=== PATIENT | female | born 1950 | race Caucasian/White ===

== ENCOUNTER 2019-07-11 14:51 | Inpatient (IN) ==
[2019-07-11] MEDS ORDERED: CARDIZEM IV ONE (15:11)
[2019-07-11] MEDS ORDERED: NS 500 ML IV ONE (15:12)
[2019-07-11] MEDS ORDERED: CARDIZEM ONE (15:14)
[2019-07-11] MEDS ORDERED: CARDIZEM 125/NS 125 MG/125 ML IVPB IV SCH (15:15)
--- NOTE | 2019-07-11 15:24 | EKG Report ---
Test Performed on : 07/11/2019 3:15:14 PM Test Reason : palpitations Blood Pressure : / mmHG Vent. Rate : 117 BPM Atrial Rate : 093 BPM P-R Int : 000 ms QRS Dur : 138 ms QT Int : 376 ms P-R-T Axes : 000 -51 101 degrees QTc Int : 524 ms Atrial fibrillation. with rapid ventricular response. Left axis deviation Left bundle branch block Abnormal ECG When compared with ECG of 11-JUL-2019 15:10, (Unconfirmed) No significant change was found Unconfirmed Result
--- NOTE | 2019-07-11 15:35 | Diag Imaging Result Doc PS360 ---
EXAM: CHEST-1 VIEW HISTORY: palpitations TECHNIQUE: Chest single view COMPARISON: None. FINDINGS: The lungs are well expanded. The heart is not enlarged. The vessels are not distended. There are no infiltrates. No effusion identified. IMPRESSION: Negative exam. Electronically signed by Ham Petersen 07/11/2019 3:32 PM
[2019-07-11 15:52] LABS: URINE SOURCE CLEAN CATCH
[2019-07-11 15:59] LABS: BASO# 0.03 X1000 (0.0-0.2); BASO% 0.4 % (0.0-0.8); EOS# 0.13 X1000 (0.0-0.7); EOS% 1.6 % (0.0-10.0); HEMATOCRIT 39.4 % (37.0-47.0); HEMOGLOBIN 13.2 g/dL (12.0-16.0); LYMPH# 2.82 X1000 (1.2-3.4); LYMPH% 33.9 % (20.5-51.1); MCH 28.3 PG (27-31); MCHC 33.5 g/dL (33-37); MCV 84.4 FL (81-99); MONO# 0.62 X1000 (0.11-0.59); MONO% 7.4 % (1.7-9.3); MPV 11.6 FL (7.4-10.4); NEUT# 4.73 X1000 (1.4-6.5); NEUT% 56.7 % (42.2-75.2); PLT 284 X1000 (130-400); RBC 4.67 XMIL (4.2-5.4); RDW 13.2 % (11.5-14.5); WBC 8.33 X1000 (4.8-10.8)
[2019-07-11 16:00] LABS: BILIRUBIN URINE NEGATIVE (NEGATIVE); BLOOD URINE TRACE (NEGATIVE); COLOR STRAW; GLUCOSE URINE NEGATIVE (NEGATIVE); KETONE URINE NEGATIVE (NEGATIVE); LEUKOCYTES URINE NEGATIVE (NEGATIVE); NITRITE URINE NEGATIVE (NEGATIVE); PROTEIN URINE NEGATIVE (NEGATIVE); SP GRAVITY URINE 1.003; TURBIDITY URINE CLEAR (CLEAR); UROBILINOGEN URINE NORMAL (NORMAL)
[2019-07-11] MEDS ORDERED: CARDIZEM 125/NS 125 MG/125 ML IVPB IV ONE (16:00)
[2019-07-11 16:01] LABS: UR EPITHELIAL CELLS <10 /HPF (<10); URINE BACTERIA NEGATIVE /HPF; URINE RBC <10 /HPF (<10); URINE WBC <10 /HPF (<10)
[2019-07-11 16:09] LABS: INR 0.96; PROTIME 12.8 Seconds (11.0-16.0)
[2019-07-11 16:10] LABS: PTT 29.5 Seconds (22.3-41.8)
[2019-07-11 16:48] LABS: AGAP 15; ALB/GLOB RATIO 1.5; ALBUMIN 4.6 g/dL (3.5-5.0); ALKALINE PHOSPHATASE 135 U/L (32-104); BUN 16 mg/dL (8-22); CHLORIDE 105 mmol/L (98-107); COSMO 291; CREATININE 0.9 mg/dL (0.5-0.9); ESTIMATED GFR > 60; GLUCOSE 112 mg/dL (70-104); GOT 21 U/L (10-30); GPT 21 U/L (10-36); POTASSIUM 3.2 mmol/L (3.5-5.1); SODIUM 145 mmol/L (136-145); TCO2 25 mmol/L (25-35); TOTAL BILIRUBIN 0.29 mg/dL (0.20-1.00); TOTAL PROTEIN 7.7 g/dL (6.3-8.3)
[2019-07-11] MEDS ORDERED: KLOR-CON PO ONE (17:01)
--- NOTE | 2019-07-11 17:01 | PROVIDER DOCUMENTATION ---
This chart was entered by Gwen Powell Scribe, acting as scribe for Yefri Ocampo MD. HPI-Cardiac General - General Chief Complaint: Palpitations Stated Complaint: HEART PROBLEM Time Seen by Provider: 07/11/19 14:58 Source: patient Allergies/Adverse Reactions: Patient Allergies Allergy/AdvReac Type Severity Reaction Status Date / Time No Known Allergies Allergy Verified 07/11/19 15:16 Home Medications: Home Medication List Medication Instructions Recorded Confirmed Last Taken Type Atorvastatin Calcium 40 mg PO DAILY 07/11/19 07/11/19 07/10/19 17:00 History Bupropion HCl [Wellbutrin Xl] 150 mg PO DAILY 07/11/19 07/11/19 07/11/19 06:00 History Calcium Carb, Citrate/Vit D3 1 ea PO DAILY 07/11/19 07/11/19 07/11/19 06:00 History [Calcium + D3 ER Tablet] Carvedilol [Coreg] 6.25 mg PO BID 07/11/19 07/11/19 07/10/19 20:00 History Furosemide [Lasix] 40 mg PO BID 07/11/19 07/11/19 07/11/19 06:00 History Levothyroxine [Synthroid] 75 microgm PO DAILY 07/11/19 07/11/19 07/10/19 06:00 History Multivitamin [Multi-Day Vitamins] 1 tab PO DAILY 07/11/19 07/11/19 07/11/19 06:00 History Omeprazole 20 mg PO BID 07/11/19 07/11/19 07/10/19 20:00 History Sacubitril/Valsartan [Entresto 24 1 tab PO DAILY 07/11/19 07/11/19 07/11/19 06:00 History mg-26 mg Tablet] Spironolactone [Aldactone] 25 mg PO DAILY 07/11/19 07/11/19 07/11/19 06:00 History Vit D3-Vit K/Berberine/Hops 1 ea PO DAILY 07/11/19 07/11/19 07/11/19 06:00 History [Ostera Tablet] - History of Present Illness-Cardiac Nature of Presenting Problem: 68 yowf presents to the ed with c/o palpitations. pt sts she feels good and has no sob or chest pain. pt sts has spent the day with family and staying busy but has had no issues other then brief moments of feeling like her heart may be a bit fast. pt on exam is non toxic in appearance. pt sts no hx of AFIB and PMH is HTN and CHF Quality of Pain: reports: none Severity in ED: moderate Onset/Duration: unsure Timing: still present Context/Activities at Onset: reports: light activity Modifying Factors: improves with: nothing Palpitation Quality: fast/pounding heart beat History of arrythmia: reports: none Recent use of:: reports: caffeine Nitro Today/Relief: reports: no nitro taken today Aspirin Treatment Today: reports: no aspirin today Prior Chest Pain/Cardiac Workup: reports: no prior chest pain Associated Symptoms: reports: denies symptoms Similar Symptoms Previously?: No Recently Seen Here or By Another Healthcare Provider: No Review of Systems - Adult - REVIEW OF SYSTEMS - ADULT Constitutional: denies: chills, fever Eyes: reports: no symptoms reported Ears, Nose, Mouth & Throat: reports: no symptoms reported Cardiovascular: reports: see HPI, palpitations. denies: chest pain, orthopnea, syncope Respiratory: denies: cough, shortness of breath, wheezing Gastrointestinal: denies: abdominal pain, diarrhea, nausea, vomiting Genitourinary: reports: no symptoms reported Musculoskeletal: denies: back pain, neck pain Integumentary: reports: no symptoms reported Neurological: denies: dizziness/vertigo, headache/migraines Psychiatric: reports: no symptoms reported Endocrine: reports: no symptoms reported Hematologic/Lymphatic: reports: no symptoms reported Allergic/Immunologic: reports: no symptoms reported All Other Systems: Reviewed and Negative Past History - Adult - PAST MEDICAL HISTORY-ADULT Review of Records: reports: Old Records Reviewed, Nursing Assessment Review, Medications Reviewed, Social history reviewed & non-contributory. Major Childhood Illnesses: reports: denies history Cardiovascular: reports: CHF, HTN Respiratory: reports: denies history Gastrointestinal: reports: denies history Obstetrical/Gynecological: reports: denies history Genitourinary: reports: denies history Musculoskeletal: reports: denies history Neurological: reports: denies history Psychiatric: reports: denies history Endocrine/Immune: reports: denies history Other Conditions: reports: denies history - PRIOR SURGERIES/PROCEDURES Surgical/Procedure History: reports: reviewed, not pertinent - IMMUNIZATION STATUS Childhood Immunizations: See Nurse Assessment Flu Vaccine: See Nurse Assessment - FAMILY HISTORY Family History: reviewed, not pertinent - SOCIAL HISTORY Smoking: denies Substance Use: denies Living Situation: family Physical Exam-General - PHYSICAL EXAM-ADULT Initial Vital Signs Reviewed: Yes - CONSTITUTIONAL General Appearance: appears well, alert, no apparent distress (pt sts she feels good and denies any sx), obese. negative: anxious - EYES Eyes: PERRL/EOMI, pink conjunctivae - HEAD, EARS, NOSE, MOUTH & THROAT HENMT: moist mucous membranes - NECK Neck: non-tender, full range of motion, supple, normal inspection - RESPIRATORY Respiratory: chest non-tender, lungs clear, normal breath sounds - CARDIOVASCULAR Cardiovascular: irregularly irregular - CHEST (BREASTS) Chest/Breast: deferred - GASTROINTESTINAL (ABDOMEN) Abdominal Exam: normal bowel sounds, non tender, soft - LYMPHATIC Lymphatic: no adenopathy - MUSCULOSKELETAL Back Exam: normal inspection, no CVA tenderness, no vertebral tenderness Extremity: normal range of motion, non-tender, normal gait, normal inspection, no pedal edema, no calf tenderness, pelvis stable - SKIN Integumentary: normal color, normal turgor, warm/dry - NEUROLOGIC Neurologic: grossly normal, no motor/sensory deficits - PSYCHIATRIC Psych/Mental Status: normal mood/affect, normal thought content, normal thought process, oriented x 3 - HEART Score HEART Score: History: Slightly Suspicious HEART Score: ECG: Non-Specific Repolarization Disturbance/LBBB/PM HEART Score: Age: 45-65 Years HEART Score: Risk Factors for Atherosclerotic Disease: 1 or 2 Risk Factors HEART Score: Troponin: < or = Normal Limit Total HEART Score:: 3 Progress - PLAN OF CARE/RESULTS Progress/Plan/Lab Results: Vital Signs - 8 hr 07/11/19 14:53 Temperature 98.2 F Pulse Rate 146 H Respiratory Rate 20 O2 Sat by Pulse Oximetry 93 L Laboratory Results - last 24 hr 07/11/19 07/11/19 07/11/19 15:05 15:05 15:05 WBC 8.33 RBC 4.67 Hgb 13.2 Hct 39.4 MCV 84.4 MCH 28.3 MCHC 33.5 RDW Std Deviation 13.2 Plt Count 284 MPV 11.6 H Immature Gran % (Auto) 0.0 Neut % (Auto) 56.7 Lymph % (Auto) 33.9 [place] % (Auto) 7.4 Eos % (Auto) 1.6 Baso % (Auto) 0.4 Immature Gran # (Auto) 0.00 Neut # (Auto) 4.73 Lymph # (Auto) 2.82 [place] # (Auto) 0.62 H Eos # (Auto) 0.13 Baso # (Auto) 0.03 PT INR PTT (Actin FS) Sodium 145 Potassium 3.2 L Chloride 105 Carbon Dioxide 25 Anion Gap 15 BUN 16 Creatinine 0.9 Estimated GFR/1.73 m2 > 60 BUN/Creatinine Ratio 18 Glucose 112 H Calculated Osmolality 291 Calcium 10.0 Total Bilirubin 0.29 AST 21 ALT 21 Alkaline Phosphatase 135 H Troponin T [id number] Pept 227 Total Protein 7.7 Albumin 4.6 Globulin 3.1 Albumin/Globulin Ratio 1.5 Urine Source Urine Color Urine Turbidity Urine pH Ur Specific [place] Urine Protein Ur Glucose (Stick) Ur Ketones (Stick) Urine Blood Urine Nitrite Urine Bilirubin Urobilinogen Dipstick Urine Leukocytes Urine WBC (Auto) Urine RBC (Auto) U Epithel Cells (Auto) Urine Bacteria (Auto) 07/11/19 07/11/19 07/11/19 15:05 15:05 15:37 WBC RBC Hgb Hct MCV MCH MCHC RDW Std Deviation Plt Count MPV Immature Gran % (Auto) Neut % (Auto) Lymph % (Auto) [place] % (Auto) Eos % (Auto) Baso % (Auto) Immature Gran # (Auto) Neut # (Auto) Lymph # (Auto) [place] # (Auto) Eos # (Auto) Baso # (Auto) PT 12.8 INR 0.96 PTT (Actin FS) 29.5 Sodium Potassium Chloride Carbon Dioxide Anion Gap BUN Creatinine Estimated GFR/1.73 m2 BUN/Creatinine Ratio Glucose Calculated Osmolality Calcium Total Bilirubin AST ALT Alkaline Phosphatase Troponin T < 0.010 [id number] Pept Total Protein Albumin Globulin Albumin/Globulin Ratio Urine Source CLEAN CATCH Urine Color STRAW Urine Turbidity CLEAR Urine pH 7.0 Ur Specific [place] 1.003 Urine Protein NEGATIVE Ur Glucose (Stick) NEGATIVE Ur Ketones (Stick) NEGATIVE Urine Blood TRACE A Urine Nitrite NEGATIVE Urine Bilirubin NEGATIVE Urobilinogen Dipstick NORMAL Urine Leukocytes NEGATIVE Urine WBC (Auto) <10 Urine RBC (Auto) <10 U Epithel Cells (Auto) <10 Urine Bacteria (Auto) NEGATIVE Orders Category Date Time Status cxr [CHEST-1 VIEW] [RAD] Stat Exams 07/11/19 14:59 Completed CBC WITH ELECTRONIC DIFF [HEME] Stat Lab 07/11/19 15:05 Completed COMPREHENSIVE METABOLIC PANEL [CHEM] Stat Lab 07/11/19 15:05 Completed PRO B-NATRIURETIC PEPTIDE Stat Lab 07/11/19 15:05 Completed PROTIME WITH INR [COAG] Stat Lab 07/11/19 15:05 Completed PTT [COAG] Stat Lab 07/11/19 15:05 Completed TROPONIN T Stat Lab 07/11/19 15:05 Completed URINALYSIS W/POSS RFLX CULT [URINALYSIS] Stat Lab 07/11/19 15:37 Completed 0.9% Sodium Chloride Inj [Ns] 500 ml Med 07/11/19 15:12 Discontinued IV 999 mls/hr Diltiazem 100 mg/Ns [Cardizem 100 mg/Ns] Med 07/11/19 15:15 Ordered 100 mg in 100 ml IV As Directed mls/hr Diltiazem 125 mg/Ns [Cardizem 125/Ns] Med 07/11/19 16:00 Discontinued 125 mg in 125 ml IV As Directed mls/hr Diltiazem [Cardizem] Med 07/11/19 15:11 Discontinued 20 mg IV NOW ONE Diltiazem [Cardizem] Med 07/11/19 15:14 Discontinued 25 mg .ROUTE .STK-MED ONE Potassium Chloride E.r. [Klor-Con] Med 07/11/19 17:01 Discontinued 20 meq PO NOW ONE EKG [EKG] Stat Ther 07/11/19 15:01 Draft Result Diagrams: 07/11/19 15:05 07/11/19 15:05 - REASSESSMENT Reassessment #1 Time Reassessed: 15:35 (dr ocampo at bedside) Status: improving Reassessment Comment: pt is in no distress Reassessment #2 Time Reassessed: 15:58 (dr ocampo was at 108-115 HR and feels much better) - EKG 1 Time of EKG reading by physician:: 15:10 EKG Read and Signed by:: Yefri Ocampo EKG Interpretation (*Must complete 3 of following elements*): Abnormal Rate: 168 Rhythm: afib with rvr w/premature ventricular or aberrantly conducted complexes [place]: left (deviation) QRS: LBB SC Interval: normal ST Wave: normal 2 Time of EKG reading by physician:: 15:15 EKG Read and Signed by:: Yefri Ocampo EKG Interpretation (*Must complete 3 of following elements*): Abnormal Rate: 117 Rhythm: afib with rvr [place]: left (deviation) QRS: LBB SC Interval: normal ST Wave: normal Prior EKG Comparison: changes noted - XRAY 1 XRAY: Bilateral XRAY Study: Chest Impression: See EMR Report (EXAM: CHEST-1 VIEW HISTORY: palpitations TECHNIQUE: Chest single view COMPARISON: None. FINDINGS: The lungs are well expanded. The heart is not enlarged. The vessels are not distended. There are no infiltrates. No effusion identified. IMPRESSION: Negative exam. Electronically signed by Ham Petersen 07/11/2019 3:32 PM 07/11/19 1532 Interpreting Physician: Ham Petersen MD Dictated Date/Time: 07/11/19 1530 cc: Yefri Ocampo MD; Dusty Toro MD) - CONSULTS/PCP/HOSPITALIST Notification #1 *Consult/PCP/Hospitalist*: Suzette for Hospitalist Dr Lowe Time Discussed: 17:01 Consult Disposition: Will see in ED, Admit Departure - Departure Date of Disposition Decision: 07/11/19 Time of Disposition Decision: 16:59 DIAGNOSIS: A-fib, Hypokalemia Disposition: ADMITTED INPATIENT 09 Certified Medical Emergency: Emergent Condition: Fair Referrals and Follow-Ups: Dusty Toro MD [Primary Care Provider] - - Critical Care Note This patient required my direct & personal management of CC.: Yes Total Time (mins): 34 Critical Care Statement: This patient required my direct personal management to treat or rule out processes, the absence of which, could potentiallly result in sudden, clinically significant life or limb threatening deterioration. Attestation - Physician/ LJ Attestation Patient care was provided by Advanced Practice Provider:: No The physician spent face to face time with patient:: Yes Advanced Practice Provider documentation review:: Supervising physician onsite and consulted in the evaluation and care of this patient. The physician did have a face to face encounter with the patient. This chart was documented by the salvador scribe, ([place],Gwen, Scribe) and accurately reflects the services I performed and decisions made by me, Yefri Ocampo MD, as attested by the provider's signature.
--- NOTE | 2019-07-11 18:01 | HISTORY AND PHYSICAL ---
HISTORY OF PRESENT ILLNESS: Ms. Pearce is 68 years old. She is a patient of Dr. Dusty Toro, but her ocean clam boat captain is Dr. Quintanilla. Two years ago she was diagnosed with congestive heart failure. He had a followup for her today. He was going to get an echocardiogram, and they noticed that she appeared to be in atrial fibrillation with rapid rate, and the rate actually got up close to 200, rapid ventricular rate. She denies any chest pain. She has had a few palpitations here and there, just thought that it was nervousness. No real shortness of breath. No new pedal edema, orthopnea, paroxysmal nocturnal dyspnea. No pleuritic pain. No fever or chills. PAST MEDICAL HISTORY: 1. Hypertension. 2. Congestive heart failure. 3. Hyperlipidemia. 4. Hypothyroidism. 5. Gastroesophageal reflux disease. PAST SURGICAL HISTORY: 1. Status post hysterectomy. 2. Melanoma which has been removed. FAMILY HISTORY: Dad with congestive heart failure. Mother with heart disease. SOCIAL HISTORY: Lives with family and no history of alcohol, tobacco, or illicit drugs. REVIEW OF SYSTEMS: General: She has felt normal and has had a lot of energy. HEENT: No change in visual or hearing acuity. Neck: No neck pain or adenopathy. Respiratory: No increased work of breathing or dyspnea, paroxysmal nocturnal dyspnea or orthopnea. Cardiovascular: No chest pain. Occasional palpitations, none felt today. Gastrointestinal: No gross hematuria or dysuria or hematochezia. No change in her bowels. No abdominal pain. Endocrinologic/Hemologic: No significant history other than primary hypothyroidism and hyperlipidemia. PHYSICAL EXAMINATION: GENERAL: On exam in the emergency room, she is afebrile. She is awake, alert, oriented x3. Pleasant. Her was at the bedside. VITAL SIGNS: Temperature 98.2 degrees. Pulse 146, appears to be regular on monitor, but on close inspection, it is irregular rhythm, irregular rate. Respirations 20. Weight 155 pounds, height 5 feet. HEENT AND NECK: Her pupils are equal and round. No distended neck veins. CVP less than 6 cm from right atrium. Her carotid, radial, and femoral pulses are 2+ and symmetrical. The neck was supple. No adenopathy. CARDIOVASCULAR: Exam sounded regular. PMI was nondisplaced. No murmur or S3 appreciated. ABDOMEN: Soft, nondistended, nontender. No pedal edema. SKIN: Without rashes. No oral or nasal mucosa lesions. LABORATORY DATA: White count 8330, hematocrit 39, platelet count 284,000. Sodium 145, potassium 3.2, chloride 105, BUN 16, creatinine 0.9, blood sugar 112, calcium 10. AST 21, ALT 21. Troponin less than 0.01. Albumin of 4.6. Prothrombin time 12.8, PTT is 29. Urinalysis unremarkable. Chest x-ray negative. No sign of infiltrate. Heart is not enlarged. Looking at echocardiogram back in last year, normal left ventricular dimensions, estimated left ejection fraction is approximately 35%, setting of global hypokinesis, abnormal septal motion, paradoxical, and suspected that was related to intraventricular conduction abnormality. No significant valvular dysfunction. PA pressure was about 30 mmHg. ASSESSMENT AND PLAN: 1. Congestive heart failure, well compensated, and now with new onset atrial fibrillation. 2. Paroxysmal atrial fibrillation, new onset. Her rhythm with rapid ventricular rate, so we will control the ventricular rate. Cardiology to follow. She was given some Cardizem and is on a Cardizem drip at the present time. We will supplement with supplemental potassium by mouth. We will follow her electrolytes, specifically potassium, magnesium, calcium, and check those in the morning. We are going to check her thyroid functions, T4 and TSH. We will get a B12 and folate. 3. History of hypertension. We will monitor her blood pressure. 4. Primary hypothyroidism. Check T4 and TSH. 5. History of gastroesophageal reflux disease. We will have her on a proton pump inhibitor just for maintenance. 6. Hypercholesterolemia. We will check a lipid profile in the morning and see how that is.- cc: Nima Lowe MD
[2019-07-11] MEDS ORDERED: ZOFRAN IV PRN (18:17)
[2019-07-11] MEDS ORDERED: LOVENOX SUBQ SCH (18:17)
[2019-07-11] MEDS ORDERED: TYLENOL PO PRN (18:17)
[2019-07-11] MEDS: PRILOSEC PO SCH (21:07)
[2019-07-11] MEDS: COREG PO SCH (21:07)
[2019-07-11] MEDS: LASIX PO SCH (21:07)
[2019-07-12] MEDS: SYNTHROID PO SCH ×2 (06:03→10:33)
[2019-07-12 07:30] LABS: BASO# 0.02 X1000 (0.0-0.2); BASO% 0.3 % (0.0-0.8); EOS% 1.7 % (0.0-10.0); HEMATOCRIT 37.4 % (37.0-47.0); HEMOGLOBIN 12.1 g/dL (12.0-16.0); LYMPH# 1.92 X1000 (1.2-3.4); LYMPH% 32.7 % (20.5-51.1); MCH 28.1 PG (27-31); MCHC 32.4 g/dL (33-37); MCV 86.8 FL (81-99); MONO% 5.1 % (1.7-9.3); MPV 10.8 FL (7.4-10.4); NEUT# 3.54 X1000 (1.4-6.5); NEUT% 60.2 % (42.2-75.2); PLT 226 X1000 (130-400); RBC 4.31 XMIL (4.2-5.4); RDW 13.3 % (11.5-14.5); WBC 5.88 X1000 (4.8-10.8)
[2019-07-12 07:55] LABS: AGAP 11; BUN 14 mg/dL (8-22); CALCIUM 9.3 mg/dL (8.8-10.2); CHLORIDE 106 mmol/L (98-107); COSMO 283; CREATININE 0.8 mg/dL (0.5-0.9); ESTIMATED GFR > 60; GLUCOSE 89 mg/dL (70-104); POTASSIUM 3.7 mmol/L (3.5-5.1); SODIUM 142 mmol/L (136-145); TCO2 25 mmol/L (25-35)
--- NOTE | 2019-07-12 08:59 | PROGRESS NOTE ---
DATE: 07/12/2019 SUBJECTIVE: Remains afebrile. It looks like on the monitor, she is back in sinus rhythm. OBJECTIVE: Vital Signs: Temperature 97.8 degrees, pulse 59, respirations 18, blood pressure 124/53. HEENT: Pupils are equal and round. Lungs: Clear in all lung barragan. Cardiovascular: Regular rhythm and rate without murmur or S3. Abdomen: Soft. Skin: Warm and dry. LABORATORY DATA: Review of lab from yesterday is unremarkable. ASSESSMENT AND PLAN: 1. Congestive heart failure. She was planning on getting an echocardiogram, and they noticed she was in new-onset atrial fibrillation. 2. Paroxysmal atrial fibrillation. It appears that she is back in sinus rhythm. She did have accelerated rate yesterday. She was pretty asymptomatic though. 3. History of hypertension. 4. Primary hypothyroidism. Her T4 and TSH are normal. 5. History of gastroesophageal reflux. 6. History of hypercholesterolemia. Will see what Cardiology wants to do. cc: Nima Lowe MD
[2019-07-12 09:18] LABS: FREE T4 1.15 ng/dL (0.93-1.70); TSH 1.15 uIUmL (0.27-4.20)
--- NOTE | 2019-07-12 10:23 | EKG Report ---
Test Performed on : 07/12/2019 10:10:56 AM Test Reason : afib Blood Pressure : / mmHG Vent. Rate : 059 BPM Atrial Rate : 059 BPM P-R Int : 152 ms QRS Dur : 152 ms QT Int : 448 ms P-R-T Axes : 031 -53 107 degrees QTc Int : 443 ms Sinus bradycardia. Left axis deviation Left bundle branch block Abnormal ECG When compared with ECG of 11-JUL-2019 15:15, (Unconfirmed) Sinus rhythm. has replaced Atrial fibrillation. Vent. rate has decreased BY 58 BPM Confirmed by Jericho Alcazar MD ([id number]) on 07/12/2019 12:03:05 PM
[2019-07-12] MEDS: LASIX PO SCH ×2 (10:26→20:45)
[2019-07-12] MEDS: WELLBUTRIN XL PO SCH (10:26)
[2019-07-12] MEDS: PRILOSEC PO SCH ×2 (10:26→20:45)
[2019-07-12] MEDS: CALTRATE 600 + D PO SCH (10:26)
[2019-07-12] MEDS: LIPITOR PO SCH (10:26)
[2019-07-12] MEDS: PATIENT'S OWN MED PO SCH (10:27)
[2019-07-12] MEDS: ENTRESTO 24 MG-26 MG TABLET PO SCH (10:27)
[2019-07-12] MEDS: COREG PO SCH ×2 (10:27→20:45)
[2019-07-12] MEDS: ALDACTONE PO SCH (10:27)
[2019-07-12] MEDS: CENTRUM SILVER PO SCH (10:27)
--- NOTE | 2019-07-12 12:24 | CARDIOLOGY CONSULTATION ---
DATE: 07/12/2019 REASON FOR CONSULTATION: Cardiology was consulted for atrial fibrillation. HISTORY OF PRESENT ILLNESS: Ms. Pearce is a 68-year-old, lady with nonischemic cardiomyopathy, severe LV dysfunction, history of heart failure in the past. Had been doing well. She came to have her echocardiogram done. Was noted to be in atrial fibrillation with rapid ventricular rate. Was sent to the emergency room and was admitted. She did feel some palpitations during this time. However, in the past, she has not felt any palpitations. She does not complain of any chest pain. There is no dizziness or syncope. Associated with the palpitations, she did not complain of any dizziness. The patient was admitted and she is currently in sinus rhythm. When she was admitted, she was in atrial fibrillation with a rapid ventricular rate, heart rate going up to 160 beats per minute. She has been taking her medications regularly. REVIEW OF SYSTEMS: A 14 point review of systems was done. Gastrointestinal System: There is no history of nausea, vomiting, or diarrhea. There is no history of hematemesis or melena. Central Nervous System: No focal weakness to suggest a CVA or TIA. Genitourinary System: There is no dysuria or hematuria. PAST MEDICAL HISTORY: 1. Nonischemic cardiomyopathy. Last cardiac catheterization on 05/17/2017, left main normal, LAD normal, circumflex normal, RCA was normal. Ejection fraction less than 10% at that time. Subsequent echocardiogram in 2018 revealed an ejection fraction of 35%. 2. Hypertension. 3. Hyperlipidemia. 4. Hypothyroidism. 5. Gastroesophageal reflux disease. HOME MEDICATIONS: Include: 1. Coreg. 2. Entresto. 3. Levothyroxine. 4. Lasix 40 mg p.o. b.i.d. 5. Atorvastatin 40. 6. Wellbutrin. 7. Omeprazole. SOCIAL HISTORY: She does not smoke, does not drink. PHYSICAL EXAMINATION: Blood pressure was 137/59. Cardiovascular System: Normal jugular venous pressure. There was no thyromegaly. There was no carotid bruit. First and second heart sounds were heard. There was no S3 gallop. Respiratory System: Normal air entry. There were no crepitations or rhonchi. Abdomen: Soft, nontender. There was no guarding or rigidity. Bowel sounds were heard. Central Nervous System: Alert and was moving all 4 extremities. Examination of the extremities revealed no pedal edema. HEENT: Atraumatic, normocephalic. Pupils were equal and reacting to light. DIAGNOSTIC DATA: Her electrolytes were unremarkable. Chest x-ray was unremarkable. ASSESSMENT AND PLAN: Ms. Nory Pearce is a 68-year-old, lady with a history of hypertension, nonischemic cardiomyopathy, congestive heart failure in the past, hypothyroidism, is admitted with atrial fibrillation with a rapid ventricular rate. She is currently in sinus rhythm. She does not perceive having had any palpitations. However, even at an elevated heart rate, she felt a few flutters. Regardless, I suspect this is likely new onset atrial fibrillation. She is in sinus rhythm. RECOMMENDATIONS: 1. We will see what the echocardiogram done today shows as far as an ejection fraction is concerned. She is on RODOLFO inhibitors and beta blockers, in addition to diuretics. I have not made any changes. 2. Currently, she is in sinus rhythm. We will start her on amiodarone 400 mg twice daily for 3 days, followed by 400 mg a day, and follow up in our office in a couple of weeks. She has hypothyroid. We will watch her TSH closely. However, given her history of congestive heart failure, I am not starting her on Multaq. Should she have problems with amiodarone, we will consider other medications. That will be done as an outpatient. 3. I had a detailed discussion with the patient and I have recommended, given her elevated CHADS2- VASc score, to be on anticoagulation therapy. We will start her on Eliquis 5 mg twice daily. If she ambulates well and has not had any further problems, she can be discharged home and follow up with our office. cc: Soren Torres MD
[2019-07-12] MEDS: CORDARONE PO SCH ×2 (12:41→20:45)
[2019-07-12] MEDS: ELIQUIS PO SCH ×2 (12:41→20:45)
--- NOTE | 2019-07-12 16:08 | ECHO REPORT ---
ORDER DATE: 07/12/2019 INDICATION: New onset atrial fibrillation. FINDINGS: 1. Right atrium appears normal in size at 3.4 cm. 2. Mild tricuspid regurgitation. RV systolic pressure 34. 3. Normal RV size and systolic function. 4. Mild pulmonic insufficiency. 5. Normal left atrial size at 3.1 cm. 6. No mitral valve prolapse. Mild mitral regurgitation. No evidence of mitral stenosis. 7. Normal LV size, end-diastolic dimension of 4.6. Mild left ventricular hypertrophy with a posterior and interventricular septal wall thickness of 1.3 and 1.2 cm respectively. The LV systolic function does appear to be reduced. The estimated ejection fraction is 35% with global hypokinesis. There was some poor endocardial border resolution. Overall, this does not appear to be significantly different from the last echo noted in March of 2018. 8. Aortic valve opens well. It is trileaflet. No evidence of stenosis or insufficiency. 9. Aorta appears normal in the visualized segments. 10. No pericardial effusion seen. cc: MD Laquita Tucker CRNP
[2019-07-13] MEDS: SYNTHROID PO SCH ×2 (05:35→06:01)
--- NOTE | 2019-07-13 07:31 | EKG Report ---
Test Performed on : 07/13/2019 07:07:01 AM Test Reason : afib Blood Pressure : / mmHG Vent. Rate : 048 BPM Atrial Rate : 048 BPM P-R Int : 160 ms QRS Dur : 160 ms QT Int : 492 ms P-R-T Axes : 053 -50 127 degrees QTc Int : 439 ms Sinus bradycardia. Left axis deviation Left bundle branch block Abnormal ECG When compared with ECG of 12-JUL-2019 10:10, No significant change was found Confirmed by Jericho Alcazar MD ([id number]) on 07/13/2019 12:11:22 PM
[2019-07-13 07:56] VITALS: BP 133/69
[2019-07-13] MEDS: LIPITOR PO SCH (08:23)
[2019-07-13] MEDS: WELLBUTRIN XL PO SCH (08:24)
[2019-07-13] MEDS: ALDACTONE PO SCH (08:24)
[2019-07-13] MEDS: LASIX PO SCH (08:24)
[2019-07-13] MEDS: PRILOSEC PO SCH (08:24)
[2019-07-13] MEDS: CENTRUM SILVER PO SCH (08:24)
[2019-07-13] MEDS: CALTRATE 600 + D PO SCH (08:24)
[2019-07-13] MEDS: ENTRESTO 24 MG-26 MG TABLET PO SCH (08:24)
[2019-07-13] MEDS: ELIQUIS PO SCH (08:24)
[2019-07-13] MEDS: CORDARONE PO SCH (08:25)
[2019-07-13] MEDS: PATIENT'S OWN MED PO SCH (08:32)
--- NOTE | 2019-07-14 05:14 | DISCHARGE SUMMARY ---
ADMISSION DATE: 07/11/2019 DISCHARGE DATE: 07/13/2019 PRIMARY CARE PHYSICIAN: Dr. Dusty Toro CONSULTATIONS: Cardiology. ADMISSION DIAGNOSES: 1. New onset paroxysmal atrial fibrillation with rapid ventricular response. 2. Congestive heart failure, well compensated. 3. History of hypertension. 4. Primary hypothyroidism. 5. Gastroesophageal reflux disease. 6. Hypercholesterolemia. DISCHARGE DIAGNOSES: 1. Paroxysmal atrial fibrillation now converted to sinus bradycardia. 2. Congestive heart failure, well compensated. 3. Hypertension. 4. Hypothyroidism. 5. Gastroesophageal reflux disease. 6. Hypercholesterolemia. SUMMARY OF FINDINGS: This is a 68-year-old female who arrived to the ER after she had been obtaining an echocardiogram on an outpatient basis. When the tech went to do the procedure, her heart rate was so high that they could not perform the test. They notified the airport operations duty manager that ordered, and he sent her to the emergency room where she was found to be in new onset atrial fibrillation with RVR. It got as high at one point as 200. She was placed on a Cardizem drip and admitted. Again, we consulted Cardiology. We obtained an echocardiogram on 07/12/2019 that showed an ejection fraction of 35% with reduced LV systolic function. She was placed on anticoagulation therapy of Eliquis 5 mg b.i.d. No further changes were made to her medications. She did convert to sinus bradycardia at 59 so it is now felt that she can safely be discharged home. DISCHARGE MEDICATIONS: 1. Amiodarone 400 mg p.o. b.i.d. 2. Eliquis 5 mg p.o. b.i.d. 3. Atorvastatin 40 mg p.o. daily. 4. Bupropion 150 mg p.o. daily. 5. Calcium plus D3 1 p.o. daily. 6. Coreg 6.25 mg p.o. b.i.d. 7. Lasix 40 mg p.o. b.i.d. 8. Synthroid 75 mcg p.o. daily. 9. Multivitamin 1 p.o. daily. 10. Omeprazole 20 mg p.o. b.i.d. 11. Entresto 24 mg/26 mg p.o. daily. 12. Spironolactone 25 mg p.o. daily. 13. tablet 1 p.o. daily. FOLLOW-UP: She has an appointment with her primary care physician on 07/20/2019 at 9:00 in the morning, and with Dr. Quintanilla on 07/24/2019 at 9:30 in the morning. All discharge instructions have been reviewed with the patient and she verbalizes understanding. TIME SPENT: This is a 35 minute discharge. Dictated by TAYLOR Sandhu for Bennett Orona MD cc: TAYLOR Sandhu MD David Francis, MD William D. Denney, MD [facility]
[2019-07-15] MEDS ORDERED: CORDARONE PO SCH (09:00)
== END 2019-07-13 11:50 | disposition home or self-care (01) | DRG 309 ==
LOC: ED 14:51 → 2N 17:24 → SUATTDRO 17:24
PROVIDERS: ATTEND Internal Medicine